=== PATIENT | male | born 1990 | race Caucasian/White ===

== ENCOUNTER 2021-04-11 17:34 | Emergency (ER) | payer OTHER ==
[2021-04-11 17:52] VITALS: BP 153/65
--- NOTE | 2021-04-11 17:57 | ED Physician Documentation ---
PD HPI BACK PAIN - Stated complaint Stated Complaint: BACK INJ - Chief complaint Chief Complaint: Back Pain - History obtained from History obtained from: Patient - Additional information Additional information: 30-year-old gentleman with history of some back problems, and physical therapy for same. 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 He was able to walk a few feet after that but then lay down on the ground with pain. He was worried about a spinal cord injury so did not move after that. He denies weakness, numbness, tingling, saddle a nesthesia, fevers. Review of Systems Constitutional: reports: Reviewed and negative Eyes: reports: Reviewed and negative Ears: reports: Reviewed and negative Nose: reports: Reviewed and negative Throat: reports: Reviewed and negative Cardiac: reports: Reviewed and negative PD PAST MEDICAL HISTORY - Past Medical History Past Medical History: Yes Musculoskeletal: Chronic back pain Derm: Eczema - Allergies Allergies/Adverse Reactions: Allergies Allergy/AdvReac Type Severity Reaction Status Date / Time No Known Drug Allergies Allergy Verified 04/11/21 17:52 - Social History Does the pt smoke?: No Smoking Status: Never smoker PD ED PE NORMAL - Vitals Vital signs reviewed: Yes - General General: Alert and oriented X 3, Other (He is able to sit up and roll on his side without issues. Declines pain medication on initial evaluation.) - Back Back: No spinal TTP - Extremities Extremities: Other (The patient has equal and normal Achilles and patellar reflexes bilaterally. Normal sensation in all areas of the legs. Patient denies saddle anesthesia. Normal strength in flexion-extension at the ankles, knees, and flexion of the hips.) - Neuro Neuro: Alert and oriented X 3, Normal speech - Psych Psych: Normal mood, Normal affect Results - Vitals Vitals: Vital Signs - 24 hr 04/11/21 17:49 Temperature 36.7 C Heart Rate 64 Respiratory 16 Rate Blood Pressure 153/65 H O2 Saturation 100 Oxygen O2 Source Room air PD MEDICAL DECISION MAKING - ED course ED course: 30-year-old gentleman with a back injury after lifting, thoracic spine x-rays were negative, he was ambulatory and mobile here without evidence of neurologic compromise. Declined pain medication or muscle relaxers. Departure - Departure Disposition: 01 Home, Self Care Clinical Impression: Back pain Condition: Good Record reviewed to determine appropriate education?: Yes Instructions: ED Low Back Pain Injury Comments: As discussed, I think the pop he felt in your back was muscular since you do not have any symptoms of the disc herniation or physical findings suggestive of such. Follow-up with your flight surgeon for further evaluation and treatment and return for new or worsening symptoms. Discharge Date/Time: 04/11/21 18:40
--- NOTE | 2021-04-11 18:23 | XRAY Report ---
PROCEDURE: Thoracic Spine 2 View INDICATIONS: back injury TECHNIQUE: 3 views of the thoracic spine were acquired. COMPARISON: None. FINDINGS: Bones: No fractures or dislocations. No suspicious bony lesions. Visualized ribs are intact. Soft t issues: No paravertebral stripe thickening. IMPRESSION: No acute fracture. No osseous lesion. If symptoms and/or clinical suspicion for pathology continue, f urther assessment with repeat plain films, or advanced imaging (e.g., CT, MRI, or bone scan) is recom mended for further assessment. Reviewed by: Nirmal Haile MD on 04/11/2021 6:22 PM PST Approved by: Nirmal Haile MD on 04/11/2021 6:22 PM PST Station ID: [id number]
== END 2021-04-11 18:40 | disposition home or self-care (01) ==
LOC: ED 17:34
DX: M54.50 Low back pain, unspecified (principal); S39.92XA Unspecified injury of lower back, initial encounter; X50.0XXA Overexertion from strenuous movement or load, initial encounter; Y93.89 Activity, other specified
CPT/HCPCS: 99282; 99283